=== PATIENT | male | born 1940 | race Caucasian/White ===

== ENCOUNTER 2018-04-21 01:08 | Outpatient (RCR) | payer MEDICARE, SELFPAY | END 2018-05-15 | LOC: INF 01:08 | PROVIDERS: PCP Family Medicine; Visit Provider Internal Medicine | DX: D75.0 Familial erythrocytosis (principal) | CPT/HCPCS: 36415; 85014; 85018 ==

== ENCOUNTER → 2018-04-21 06:59 | Outpatient (CLI) | payer MEDICARE, SELFPAY ==
[2018-04-21 07:17] LABS: HCT 44.7 % (40.0-50.0); HGB 14.7 g/dL (13.5-17.5)
== END ==
PROVIDERS: PCP Family Medicine; Visit Provider Family Medicine
DX: D75.0 Familial erythrocytosis (principal)
CPT/HCPCS: 36415; 85014; 85018

== ENCOUNTER → 2018-05-07 10:56 | Outpatient (CLI) | payer MEDICARE, SELFPAY ==
--- NOTE | 2018-05-07 10:56 | DI.REPORT_ITS ---
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 No evidence of deep venous thrombosis in thigh or calf. There is 23 x 10 x 19 mm in diameter complex predominantly cystic collection corresponding to an area of trauma in the patient's kennedy and the findings are consistent with hematoma. CONCLUSION: No evidence of DVT.
== END ==
PROVIDERS: PCP Family Medicine; Visit Provider Family Medicine
DX: I80.01 Phlebitis and thrombophlebitis of superficial vessels of right lower extremity (principal)
CPT/HCPCS: 93971

== ENCOUNTER 2018-05-19 01:39 | Outpatient (RCR) | payer MEDICARE, SELFPAY | END 2018-06-14 23:59 | disposition home or self-care (01) | LOC: INF 01:39 | PROVIDERS: PCP Family Medicine; Visit Provider Family Medicine | DX: D75.0 Familial erythrocytosis (principal) | CPT/HCPCS: 99195; 85014; 85018 ==

== ENCOUNTER 2018-05-19 06:59 | Outpatient (CLI) | payer MEDICARE, SELFPAY ==
[2018-05-19 07:43] LABS: HCT 47.2 % (40.0-50.0); HGB 15.3 g/dL (13.5-17.5)
== END 2018-05-19 07:19 ==
PROVIDERS: PCP Family Medicine; Visit Provider Family Medicine
DX: D75.1 Secondary polycythemia (principal); I48.91 Unspecified atrial fibrillation; Z79.01 Long term (current) use of anticoagulants
CPT/HCPCS: 84443; 85014; 85018

== ENCOUNTER 2018-06-16 07:00 | Outpatient (CLI) | payer MEDICARE, SELFPAY ==
[2018-06-16 07:16] LABS: HCT 46.9 % (40.0-50.0); HGB 15.2 g/dL (13.5-17.5)
== END 2018-06-16 07:20 ==
PROVIDERS: PCP Family Medicine; Visit Provider Family Medicine
DX: D75.0 Familial erythrocytosis (principal)
CPT/HCPCS: 36415; 85014; 85018

== ENCOUNTER 2018-07-07 00:53 | Outpatient (RCR) | payer MEDICARE, SELFPAY ==
[2018-07-07 07:11] LABS: HCT 44.5 % (40.0-50.0); HGB 14.5 g/dL (13.5-17.5)
== END 2018-07-15 23:59 | disposition home or self-care (01) ==
LOC: INF 00:53
PROVIDERS: PCP Family Medicine; Visit Provider Family Medicine
DX: D75.0 Familial erythrocytosis (principal)
CPT/HCPCS: 36415; 99195; 85014; 85018

== ENCOUNTER 2018-08-18 00:54 | Outpatient (RCR) | payer MEDICARE, SELFPAY | END 2018-09-14 23:59 | disposition home or self-care (01) | LOC: INF 00:54 | PROVIDERS: PCP Family Medicine; Visit Provider Family Medicine | DX: D75.0 Familial erythrocytosis (principal) | CPT/HCPCS: 36415; 99195; 85014; 85018 ==

== ENCOUNTER 2018-08-18 07:01 | Outpatient (CLI) | payer MEDICARE, SELFPAY ==
[2018-08-18 07:19] LABS: HCT 45.8 % (40.0-50.0); HGB 14.7 g/dL (13.5-17.5)
== END 2018-08-18 07:21 ==
PROVIDERS: PCP Family Medicine; Visit Provider Family Medicine
DX: D75.1 Secondary polycythemia (principal)
CPT/HCPCS: 36415; 85014; 85018

== ENCOUNTER 2018-09-22 01:48 | Outpatient (RCR) | payer MEDICARE, SELFPAY | END 2018-10-15 23:59 | disposition home or self-care (01) | LOC: INF 01:48 | PROVIDERS: PCP Family Medicine; Visit Provider Family Medicine | DX: D75.0 Familial erythrocytosis (principal) | CPT/HCPCS: 99195 ==

== ENCOUNTER 2018-09-22 07:02 | Outpatient (CLI) | payer MEDICARE, SELFPAY ==
[2018-09-22 07:27] LABS: HCT 46.6 % (40.0-50.0); HGB 14.8 g/dL (13.5-17.5)
[2018-09-22 08:35] LABS: TSH (W/Ref FT4) 5.92 uIU/mL (0.358-3.74)
[2018-09-22 09:00] LABS: FREE T4 1.09 ng/dL (0.76-1.46)
== END 2018-09-22 07:22 ==
PROVIDERS: PCP Family Medicine; Visit Provider Family Medicine
DX: D75.1 Secondary polycythemia (principal); E03.9 Hypothyroidism, unspecified
CPT/HCPCS: 36415; 99195; 84439; 84443; 85014; 85018

== ENCOUNTER 2018-10-20 01:49 | Outpatient (RCR) | payer MEDICARE, SELFPAY ==
[2018-10-20 07:41] LABS: HCT 43.4 % (40.0-50.0); HGB 13.9 g/dL (13.5-17.5)
== END 2018-11-12 23:59 | disposition home or self-care (01) ==
LOC: INF 01:49
PROVIDERS: PCP Family Medicine; Visit Provider Family Medicine
DX: D75.0 Familial erythrocytosis (principal)
CPT/HCPCS: 36415; 85014; 85018

== ENCOUNTER 2018-11-17 01:22 | Outpatient (RCR) | payer MEDICARE, SELFPAY | END 2018-12-13 23:59 | disposition home or self-care (01) | LOC: INF 01:22 | PROVIDERS: PCP Family Medicine; Visit Provider Family Medicine | DX: D75.0 Familial erythrocytosis (principal) | CPT/HCPCS: 99195 ==

== ENCOUNTER 2018-11-17 06:59 | Outpatient (CLI) | payer MEDICARE, SELFPAY ==
[2018-11-17 07:25] LABS: HCT 45.7 % (40.0-50.0); HGB 14.7 g/dL (13.5-17.5)
[2018-11-17 08:51] LABS: ALT 30 U/L (12-78); AST 19 U/L (15-37); Albumin 3.9 g/dL (3.4-5.0); Alkaline Phosphatase 121 U/L (46-116); Anion Gap 7.4 mmol/L (3-11); BUN 21 mg/dL (7-18); Bilirubin, Total 0.5 mg/dL (0.2-1.0); CO2 29.6 mmol/L (21.0-32.0); CREATININE 1.76 mg/dL (0.70-1.30); Calcium 9.5 mg/dL (8.5-10.1); Chloride 104 mmol/L (98-107); Cholesterol 126 mg/dL (50-200); Estimated GFR 37.84 (mL/min/1.73m2); Glucose 100 mg/dL (70-100); HDL Cholesterol 33 mg/dL (40-60); LDL CHOLESTEROL 67 mg/dL (<100); Sodium 141 mmol/L (136-145); Triglyceride 155 mg/dL (30-150)
[2018-11-17 08:58] LABS: TSH (W/Ref FT4) 4.67 uIU/mL (0.358-3.74)
[2018-11-17 09:19] LABS: FREE T4 1.03 ng/dL (0.76-1.46)
== END 2018-11-17 07:19 ==
PROVIDERS: PCP Family Medicine; Visit Provider Family Medicine
DX: E78.5 Hyperlipidemia, unspecified (principal); E03.9 Hypothyroidism, unspecified; D75.1 Secondary polycythemia
CPT/HCPCS: 36415; 80053; 80061; 83721; 99195; 84439; 84443; 85014; 85018

== ENCOUNTER 2018-12-15 02:03 | Outpatient (CLI) | payer MEDICARE, SELFPAY ==
[2018-12-15 08:04] LABS: HCT 45.6 % (40.0-50.0); HGB 14.6 g/dL (13.5-17.5)
== END 2018-12-15 02:23 ==
PROVIDERS: PCP Family Medicine; Visit Provider Family Medicine
DX: D75.1 Secondary polycythemia (principal)
CPT/HCPCS: 36415; 85014; 85018

== ENCOUNTER 2019-01-19 02:29 | Outpatient (RCR) | payer MEDICARE, SELFPAY ==
[2019-01-19 07:15] LABS: HCT 42.8 % (40.0-50.0); HGB 13.8 g/dL (13.5-17.5)
== END 2019-02-12 23:59 | disposition home or self-care (01) ==
LOC: INF 02:29
PROVIDERS: PCP Family Medicine; Visit Provider Family Medicine
DX: D75.0 Familial erythrocytosis (principal)
CPT/HCPCS: 36415; 85014; 85018

== ENCOUNTER 2019-01-19 06:55 | Outpatient (CLI) | payer MEDICARE, SELFPAY | END 2019-01-19 07:15 | PROVIDERS: PCP Family Medicine; Visit Provider Family Medicine | DX: D75.1 Secondary polycythemia (principal) ==

== ENCOUNTER 2019-02-16 01:50 | Outpatient (RCR) | payer MEDICARE, SELFPAY | END 2019-03-14 23:59 | disposition home or self-care (01) | LOC: INF 01:50 | PROVIDERS: PCP Family Medicine; Visit Provider Family Medicine | DX: D75.0 Familial erythrocytosis (principal) ==

== ENCOUNTER 2019-02-16 07:02 | Outpatient (CLI) | payer MEDICARE, SELFPAY ==
[2019-02-16 07:28] LABS: HCT 45.6 % (40.0-50.0); HGB 14.9 g/dL (13.5-17.5)
== END 2019-02-16 07:22 ==
PROVIDERS: PCP Family Medicine; Visit Provider Family Medicine
DX: D75.1 Secondary polycythemia (principal)
CPT/HCPCS: 36415; 85014; 85018

== ENCOUNTER 2019-03-16 01:48 | Outpatient (RCR) | payer MEDICARE, SELFPAY ==
[2019-03-16 07:19] LABS: HCT 47.9 % (40.0-50.0); HGB 15.5 g/dL (13.5-17.5)
== END 2019-04-14 23:59 | disposition home or self-care (01) ==
LOC: INF 01:48
PROVIDERS: PCP Family Medicine; Visit Provider Family Medicine
DX: D75.0 Familial erythrocytosis (principal)
CPT/HCPCS: 36415; 99195; 85014; 85018

== ENCOUNTER 2019-03-16 07:02 | Outpatient (CLI) | payer MEDICARE, SELFPAY | END 2019-03-16 07:22 | PROVIDERS: PCP Family Medicine; Visit Provider Family Medicine | DX: D75.1 Secondary polycythemia | CPT/HCPCS: 36415; 80048; 82043; 82570; 85014; 85018 ==

== ENCOUNTER 2019-04-20 01:21 | Outpatient (RCR) | payer MEDICARE, SELFPAY | END 2019-05-15 23:59 | disposition home or self-care (01) | LOC: INF 01:21 | PROVIDERS: PCP Family Medicine; Visit Provider Family Medicine | DX: D75.0 Familial erythrocytosis (principal) | CPT/HCPCS: 99195 ==

== ENCOUNTER 2019-04-20 07:02 | Outpatient (CLI) | payer MEDICARE, SELFPAY ==
[2019-04-20 07:40] LABS: HCT 47.6 % (40.0-50.0); HGB 15.6 g/dL (13.5-17.5)
== END 2019-04-20 07:22 ==
PROVIDERS: PCP Family Medicine; Visit Provider Family Medicine
DX: D75.1 Secondary polycythemia (principal)
CPT/HCPCS: 36415; 99195; 85014; 85018

== ENCOUNTER 2019-05-11 15:01 | Outpatient (REF) | payer MEDICARE, SELFPAY ==
[2019-05-11 18:26] LABS: Anion Gap 9.6 mmol/L (3-11); BUN 20 mg/dL (7-18); CO2 27.4 mmol/L (21.0-32.0); CREATININE 1.61 mg/dL (0.70-1.30); Calcium 8.8 mg/dL (8.5-10.1); Chloride 102 mmol/L (98-107); Estimated GFR 41.82 (mL/min/1.73m2); Glucose 110 mg/dL (70-100); Potassium 4.8 mmol/L (3.5-5.1); Sodium 139 mmol/L (136-145)
[2019-05-11 18:34] LABS: Microalb ug/mg Crea 19.8 ug/mg Cr
== END 2019-05-11 15:21 ==
LOC: LBO 15:01
PROVIDERS: PCP Family Medicine; Visit Provider Family Medicine
DX: N18.9 Chronic kidney disease, unspecified (principal)
CPT/HCPCS: 80048; 82043; 82570

== ENCOUNTER 2019-05-18 00:57 | Outpatient (RCR) | payer MEDICARE, SELFPAY ==
[2019-05-18 07:36] LABS: HCT 45.3 % (40.0-50.0); HGB 14.7 g/dL (13.5-17.5)
== END 2019-06-14 23:59 | disposition home or self-care (01) ==
LOC: INF 00:57
PROVIDERS: PCP Family Medicine; Visit Provider Family Medicine
DX: D75.1 Secondary polycythemia (principal)
CPT/HCPCS: 36415; 85014; 85018

== ENCOUNTER 2019-06-15 07:01 | Outpatient (CLI) | payer MEDICARE, SELFPAY ==
[2019-06-15 07:19] LABS: HCT 46.9 % (40.0-50.0); HGB 15.5 g/dL (13.5-17.5)
== END 2019-06-15 07:21 ==
PROVIDERS: PCP Family Medicine; Visit Provider Family Medicine
DX: D75.1 Secondary polycythemia (principal)
CPT/HCPCS: 36415; 99195; 85014; 85018

== ENCOUNTER 2019-07-13 02:06 | Outpatient (RCR) | payer MEDICARE, SELFPAY ==
[2019-06-15] MEDS: Normal Saline Flush 10 ML SYR IVP (07:46)
== END 2019-07-15 23:59 | disposition home or self-care (01) ==
LOC: INF 02:06
PROVIDERS: PCP Family Medicine; Visit Provider Family Medicine
DX: D75.0 Familial erythrocytosis (principal)
CPT/HCPCS: 99195

== ENCOUNTER 2019-07-13 07:00 | Outpatient (CLI) | payer MEDICARE, SELFPAY ==
[2019-07-13 07:21] LABS: HCT 48.2 % (40.0-50.0); HGB 15.6 g/dL (13.5-17.5)
== END 2019-07-13 07:20 ==
PROVIDERS: PCP Family Medicine; Visit Provider Family Medicine
DX: D75.1 Secondary polycythemia (principal)
CPT/HCPCS: 36415; 99195; 85014; 85018

== ENCOUNTER 2019-08-18 02:01 | Outpatient (RCR) | payer MEDICARE, SELFPAY | END 2019-09-14 23:59 | disposition home or self-care (01) | LOC: INF 02:01 | PROVIDERS: PCP Family Medicine; Visit Provider Family Medicine | DX: R69 Illness, unspecified (principal) ==

== ENCOUNTER 2019-08-18 07:47 | Outpatient (CLI) | payer MEDICARE, SELFPAY ==
[2019-08-18 07:52] LABS: HCT 45.3 % (40.0-50.0); HGB 14.4 g/dL (13.5-17.5)
== END 2019-08-18 08:07 ==
PROVIDERS: PCP Family Medicine; Visit Provider Family Medicine
DX: D75.1 Secondary polycythemia (principal)
CPT/HCPCS: 36415; 85014; 85018

== ENCOUNTER 2019-09-21 01:37 | Outpatient (RCR) | payer MEDICARE, SELFPAY | END 2019-10-15 23:59 | disposition home or self-care (01) | LOC: INF 01:37 | PROVIDERS: PCP Family Medicine; Visit Provider Family Medicine | DX: D75.0 Familial erythrocytosis (principal) ==

== ENCOUNTER 2019-09-21 06:57 | Outpatient (CLI) | payer MEDICARE, SELFPAY ==
[2019-09-21 07:28] LABS: HCT 44.9 % (40.0-50.0); HGB 14.5 g/dL (13.5-17.5)
== END 2019-09-21 07:17 ==
PROVIDERS: PCP Family Medicine; Visit Provider Family Medicine
DX: D75.1 Secondary polycythemia (principal)
CPT/HCPCS: 36415; 85014; 85018

== ENCOUNTER 2019-10-19 02:07 | Outpatient (RCR) | payer MEDICARE, SELFPAY | END 2019-11-13 23:59 | disposition home or self-care (01) | LOC: INF 02:07 | PROVIDERS: PCP Family Medicine; Visit Provider Family Medicine | DX: D75.0 Familial erythrocytosis (principal) | CPT/HCPCS: 99195 ==

== ENCOUNTER 2019-10-19 07:01 | Outpatient (CLI) | payer MEDICARE, SELFPAY ==
[2019-10-19 07:20] LABS: HCT 48.1 % (40.0-50.0); HGB 15.4 g/dL (13.5-17.5)
== END 2019-10-19 07:21 ==
PROVIDERS: PCP Family Medicine; Visit Provider Family Medicine
DX: D75.1 Secondary polycythemia (principal)
CPT/HCPCS: 36415; 99195; 85014; 85018

== ENCOUNTER 2019-11-16 03:16 | Outpatient (RCR) | payer MEDICARE, SELFPAY | END 2019-12-14 23:59 | disposition home or self-care (01) | LOC: INF 03:16 | PROVIDERS: PCP Family Medicine; Visit Provider Family Medicine | DX: R69 Illness, unspecified (principal) ==

== ENCOUNTER 2019-11-16 07:06 | Outpatient (CLI) | payer MEDICARE, SELFPAY ==
[2019-11-16 07:25] LABS: HCT 43.7 % (40.0-50.0); HGB 14.1 g/dL (13.5-17.5)
== END 2019-11-16 07:26 ==
PROVIDERS: PCP Family Medicine; Visit Provider Family Medicine
DX: D75.1 Secondary polycythemia (principal)
CPT/HCPCS: 36415; 85014; 85018

== ENCOUNTER 2019-12-16 08:47 | Outpatient (REF) | payer MEDICARE, SELFPAY ==
[2019-12-16 10:25] LABS: HGB 14.3 g/dL (13.5-17.5)
== END 2019-12-16 09:07 ==
LOC: LBN 08:47
PROVIDERS: PCP Family Medicine; Visit Provider Family Medicine
DX: D75.1 Secondary polycythemia (principal)
CPT/HCPCS: 85014; 85018

== ENCOUNTER 2020-01-13 08:31 | Outpatient (REF) | payer MEDICARE, SELFPAY ==
[2020-01-13 12:27] LABS: HCT 44.1 % (40.0-50.0); HGB 14.3 g/dL (13.5-17.5)
== END 2020-01-13 08:51 ==
LOC: LBN 08:31
PROVIDERS: PCP Family Medicine; Visit Provider Family Medicine
DX: J30.9 Allergic rhinitis, unspecified (principal)
CPT/HCPCS: 85014; 85018

== ENCOUNTER 2020-01-14 14:44 | Outpatient (RCR) | payer MEDICARE, SELFPAY | END 2020-01-14 23:00 | disposition home or self-care (01) | LOC: INF 14:44 | PROVIDERS: PCP Family Medicine; Visit Provider Family Medicine | DX: R69 Illness, unspecified (principal) ==

== ENCOUNTER 2020-02-10 08:23 | Outpatient (REF) | payer MEDICARE, SELFPAY ==
[2020-02-10 18:33] LABS: HCT 46.3 % (40.0-50.0); HGB 15.1 g/dL (13.5-17.5)
== END 2020-02-10 08:43 ==
LOC: LBN 08:23
PROVIDERS: PCP Family Medicine; Visit Provider Family Medicine
DX: D75.1 Secondary polycythemia (principal)
CPT/HCPCS: 85014; 85018

== ENCOUNTER 2020-02-11 18:18 | Outpatient (RCR) | payer MEDICARE, SELFPAY | END 2020-02-11 23:00 | disposition home or self-care (01) | LOC: INF 18:18 | PROVIDERS: PCP Family Medicine; Visit Provider Family Medicine | DX: D75.1 Secondary polycythemia (principal) | CPT/HCPCS: 99195 ==

== ENCOUNTER 2020-03-14 02:10 | Outpatient (RCR) | payer MEDICARE, SELFPAY | END 2020-03-14 23:59 | disposition home or self-care (01) | LOC: INF 02:10 | PROVIDERS: PCP Family Medicine; Visit Provider Family Medicine | DX: D75.1 Secondary polycythemia (principal) | CPT/HCPCS: 99195 ==

== ENCOUNTER 2020-03-14 02:44 | Outpatient (CLI) | payer MEDICARE, SELFPAY ==
[2020-03-14 07:09] LABS: HGB 15.3 g/dL (13.5-17.5)
== END 2020-03-14 03:04 ==
PROVIDERS: PCP Family Medicine; Visit Provider Family Medicine
DX: D75.1 Secondary polycythemia (principal)
CPT/HCPCS: 36415; 99195; 85014; 85018

== ENCOUNTER 2020-04-11 01:58 | Outpatient (RCR) | payer MEDICARE, SELFPAY | END 2020-04-14 23:59 | disposition home or self-care (01) | LOC: INF 01:58 | PROVIDERS: PCP Family Medicine; Visit Provider Family Medicine | DX: D75.0 Familial erythrocytosis (principal) | CPT/HCPCS: 99195 ==

== ENCOUNTER 2020-04-11 02:34 | Outpatient (CLI) | payer MEDICARE, SELFPAY ==
[2020-04-11 07:15] LABS: HCT 46.8 % (40.0-50.0)
== END 2020-04-11 02:54 ==
PROVIDERS: PCP Family Medicine; Visit Provider Family Medicine
DX: D75.1 Secondary polycythemia (principal)
CPT/HCPCS: 36415; 99195; 85014; 85018

== ENCOUNTER 2020-05-09 01:25 | Outpatient (RCR) | payer MEDICARE, SELFPAY ==
[2020-05-09 07:22] VITALS: BP 174/102; PULSE 84
[2020-05-09 07:40] VITALS: BP 135/72; PULSE 86
== END 2020-05-15 23:59 | disposition home or self-care (01) ==
LOC: INF 01:25
PROVIDERS: PCP Family Medicine; Visit Provider Family Medicine
DX: D75.1 Secondary polycythemia (principal)
CPT/HCPCS: 99195

== ENCOUNTER 2020-05-09 03:17 | Outpatient (CLI) | payer MEDICARE, SELFPAY ==
[2020-05-09 07:13] LABS: HCT 45.7 % (40.0-50.0); HGB 13.9 g/dL (13.5-17.5)
[2020-05-09 11:32] LABS: Anion Gap 1.1 mmol/L (3-11); BUN 23 mg/dL (7-18); CO2 30.9 mmol/L (21.0-32.0); CREATININE 1.56 mg/dL (0.70-1.30); Calcium 9.2 mg/dL (8.5-10.1); Chloride 104 mmol/L (98-107); Estimated GFR 43.26 (mL/min/1.73m2); Glucose 102 mg/dL (74-106); Potassium 4.7 mmol/L (3.5-5.1); Sodium 136 mmol/L (136-145)
== END 2020-05-09 03:37 ==
PROVIDERS: PCP Family Medicine; Visit Provider Family Medicine
DX: N18.9 Chronic kidney disease, unspecified (principal); D75.1 Secondary polycythemia
CPT/HCPCS: 36415; 80048; 99195; 85014; 85018

== ENCOUNTER 2020-06-13 02:00 | Outpatient (RCR) | payer MEDICARE, SELFPAY | END 2020-06-14 23:59 | disposition home or self-care (01) | LOC: INF 02:00 | PROVIDERS: PCP Family Medicine; Visit Provider Family Medicine | DX: Z53.9 Procedure and treatment not carried out, unspecified reason (principal) ==

== ENCOUNTER 2020-06-13 03:27 | Outpatient (CLI) | payer MEDICARE, SELFPAY ==
[2020-06-13 07:26] LABS: HCT 44.5 % (40.0-50.0); HGB 13.7 g/dL (13.5-17.5)
== END 2020-06-13 03:47 ==
PROVIDERS: PCP Family Medicine; Visit Provider Family Medicine
DX: D75.1 Secondary polycythemia (principal)
CPT/HCPCS: 36415; 85014; 85018

== ENCOUNTER 2020-07-04 00:57 | Outpatient (RCR) | payer MEDICARE, SELFPAY | END 2020-07-15 23:59 | disposition home or self-care (01) | LOC: INF 00:57 | PROVIDERS: PCP Family Medicine; Visit Provider Family Medicine | DX: Z53.9 Procedure and treatment not carried out, unspecified reason (principal) ==

== ENCOUNTER 2020-07-04 01:35 | Outpatient (CLI) | payer MEDICARE, SELFPAY ==
[2020-07-04 07:42] LABS: HCT 46.5 % (40.0-50.0); HGB 14.2 g/dL (13.5-17.5)
== END 2020-07-04 01:55 ==
PROVIDERS: PCP Family Medicine; Visit Provider Family Medicine
DX: D75.1 Secondary polycythemia (principal)
CPT/HCPCS: 36415; 85014; 85018

== ENCOUNTER 2020-08-23 02:59 | Outpatient (RCR) | payer MEDICARE, SELFPAY ==
[2020-08-23 08:25] VITALS: BP 163/95; PULSE 85; RESP 18; TEMP 36.5; O2SAT 97
== END 2020-09-14 23:59 | disposition home or self-care (01) ==
LOC: INF 02:59
PROVIDERS: PCP Family Medicine; Visit Provider Family Medicine
DX: D75.1 Secondary polycythemia (principal)
CPT/HCPCS: 36415; 99195; 85014; 85018

== ENCOUNTER 2020-08-23 03:10 | Outpatient (CLI) | payer MEDICARE, SELFPAY | END 2020-08-23 03:30 | PROVIDERS: PCP Family Medicine; Visit Provider Family Medicine | DX: D75.1 Secondary polycythemia (principal) | CPT/HCPCS: 36415; 85014; 85018 ==

== ENCOUNTER 2020-09-19 02:34 | Outpatient (RCR) | payer MEDICARE, SELFPAY ==
[2020-09-15 00:13] VITALS: BP 163/95; PULSE 85; RESP 18; TEMP 36.5
[2020-09-19 07:16] LABS: HCT 47.8 % (40.0-50.0); HGB 14.5 g/dL (13.5-17.5)
== END 2020-10-15 23:59 | disposition home or self-care (01) ==
LOC: INF 02:34
PROVIDERS: PCP Family Medicine; Visit Provider Family Medicine
DX: D75.1 Secondary polycythemia (principal)
CPT/HCPCS: 36415; 99195; 85014; 85018

== ENCOUNTER 2020-10-17 01:45 | Outpatient (RCR) | payer MEDICARE, SELFPAY ==
[2020-10-16 00:05] VITALS: BP 163/95; PULSE 85; RESP 18; TEMP 36.5
== END 2020-11-12 23:59 | disposition home or self-care (01) ==
LOC: INF 01:45
PROVIDERS: PCP Family Medicine; Visit Provider Family Medicine
DX: D75.1 Secondary polycythemia (principal)
CPT/HCPCS: 99195

== ENCOUNTER 2020-10-17 02:54 | Outpatient (CLI) | payer MEDICARE, SELFPAY ==
[2020-10-17 07:22] LABS: HCT 46.3 % (40.0-50.0); HGB 14.5 g/dL (13.5-17.5)
== END 2020-10-17 02:55 | disposition home or self-care (01) ==
LOC: LBO 02:54
PROVIDERS: PCP Family Medicine; Visit Provider Family Medicine
DX: D75.1 Secondary polycythemia (principal)
CPT/HCPCS: 36415; 99195; 85014; 85018

== ENCOUNTER 2020-11-14 02:31 | Outpatient (RCR) | payer MEDICARE, SELFPAY ==
[2020-11-13 00:04] VITALS: BP 163/95; PULSE 85; RESP 18; TEMP 36.5
== END 2020-12-13 23:59 | disposition home or self-care (01) ==
LOC: INF 02:31
PROVIDERS: PCP Family Medicine; Visit Provider Family Medicine
DX: D75.1 Secondary polycythemia (principal)
CPT/HCPCS: 99195

== ENCOUNTER 2020-11-14 03:11 | Outpatient (CLI) | payer MEDICARE, SELFPAY ==
[2020-11-14 07:18] LABS: HCT 46.7 % (40.0-50.0); HGB 14.3 g/dL (13.5-17.5)
[2020-11-14 07:27] LABS: Anion Gap 7.1 mmol/L (3-11); BUN 21 mg/dL (7-18); CO2 28.9 mmol/L (21.0-32.0); CREATININE 1.8 mg/dL (0.70-1.30); Chloride 102 mmol/L (98-107); Estimated GFR 36.67 (mL/min/1.73m2); Glucose 107 mg/dL (74-106); Potassium 4.6 mmol/L (3.5-5.1); Sodium 138 mmol/L (136-145)
== END 2020-11-14 03:12 | disposition home or self-care (01) ==
LOC: LBO 03:12
PROVIDERS: PCP Family Medicine; Visit Provider Family Medicine
DX: D75.1 Secondary polycythemia (principal); N18.9 Chronic kidney disease, unspecified
CPT/HCPCS: 36415; 80048; 99195; 85014; 85018

== ENCOUNTER 2020-12-19 03:31 | Outpatient (CLI) | payer MEDICARE, SELFPAY ==
[2020-12-19 07:41] LABS: HCT 43.5 % (40.0-50.0); HGB 13.1 g/dL (13.5-17.5)
== END 2020-12-19 03:32 | disposition home or self-care (01) ==
LOC: LBO 03:31
PROVIDERS: PCP Family Medicine; Visit Provider Family Medicine
DX: D75.1 Secondary polycythemia (principal)
CPT/HCPCS: 36415; 85014; 85018

== ENCOUNTER 2021-01-16 01:47 | Outpatient (RCR) | payer MEDICARE, SELFPAY ==
[2021-01-13 00:22] VITALS: BP 163/95; PULSE 85; RESP 18; TEMP 36.5
== END 2021-02-12 23:59 | disposition home or self-care (01) ==
LOC: INF 01:47
PROVIDERS: PCP Family Medicine; Visit Provider Family Medicine
DX: D75.1 Secondary polycythemia (principal)
CPT/HCPCS: 99195

== ENCOUNTER 2021-01-16 07:06 | Outpatient (CLI) | payer MEDICARE, SELFPAY ==
[2021-01-16 07:24] LABS: HCT 48.6 % (40.0-50.0); HGB 14.7 g/dL (13.5-17.5)
== END 2021-01-16 07:07 | disposition home or self-care (01) ==
LOC: LBO 07:10
PROVIDERS: PCP Family Medicine; Visit Provider Family Medicine
DX: D75.1 Secondary polycythemia (principal)
CPT/HCPCS: 36415; 99195; 85014; 85018

== ENCOUNTER 2021-02-13 02:57 | Outpatient (CLI) | payer MEDICARE, SELFPAY ==
[2021-02-13 07:21] LABS: HCT 46.7 % (40.0-50.0); HGB 14.1 g/dL (13.5-17.5)
[2021-02-13 08:17] LABS: TSH (W/Ref FT4) 6.72 uIU/mL (0.36-3.74)
[2021-02-13 08:36] LABS: FREE T4 0.89 ng/dL (0.76-1.46)
== END 2021-02-13 02:58 | disposition home or self-care (01) ==
LOC: LBO 02:57
PROVIDERS: PCP Family Medicine; Visit Provider Family Medicine
DX: E03.9 Hypothyroidism, unspecified (principal); I10 Essential (primary) hypertension; D75.1 Secondary polycythemia
CPT/HCPCS: 36415; 99195; 84439; 84443; 85014; 85018

== ENCOUNTER 2021-03-06 02:45 | Outpatient (RCR) | payer MEDICARE, SELFPAY ==
[2021-02-13 00:08] VITALS: BP 163/95; PULSE 85; RESP 18; TEMP 36.5
== END 2021-03-14 23:59 | disposition home or self-care (01) ==
LOC: INF 02:45
PROVIDERS: PCP Family Medicine; Visit Provider Family Medicine
DX: D75.1 Secondary polycythemia (principal)
CPT/HCPCS: 99195

== ENCOUNTER 2021-03-06 03:14 | Outpatient (CLI) | payer MEDICARE, SELFPAY ==
[2021-03-06 07:20] LABS: HCT 42.7 % (40.0-50.0); HGB 12.9 g/dL (13.5-17.5)
== END 2021-03-06 03:15 | disposition home or self-care (01) ==
LOC: LBO 03:14
PROVIDERS: PCP Family Medicine; Visit Provider Family Medicine
DX: D75.1 Secondary polycythemia (principal)
CPT/HCPCS: 36415; 85014; 85018

== ENCOUNTER 2021-04-03 02:09 | Outpatient (RCR) | payer MEDICARE, SELFPAY ==
[2021-03-15 00:19] VITALS: BP 163/95; PULSE 85; RESP 18; TEMP 36.5
[2021-04-03] MEDS: Normal Saline Flush 10 ML SYR IVP (08:01)
== END 2021-04-14 23:59 | disposition home or self-care (01) ==
LOC: INF 02:09
PROVIDERS: PCP Family Medicine; Visit Provider Family Medicine
DX: D75.1 Secondary polycythemia (principal)
CPT/HCPCS: 99195

== ENCOUNTER 2021-04-03 02:50 | Outpatient (CLI) | payer MEDICARE, SELFPAY ==
[2021-04-03 07:27] LABS: HCT 45.8 % (40.0-50.0); HGB 13.6 g/dL (13.5-17.5)
== END 2021-04-03 02:51 | disposition home or self-care (01) ==
LOC: LBO 02:50
PROVIDERS: PCP Family Medicine; Visit Provider Family Medicine
DX: D75.1 Secondary polycythemia (principal)
CPT/HCPCS: 36415; 99195; 85014; 85018

== ENCOUNTER 2021-05-01 03:26 | Outpatient (CLI) | payer MEDICARE, SELFPAY ==
[2021-05-01 07:27] LABS: HCT 42.4 % (40.0-50.0); HGB 12.5 g/dL (13.5-17.5)
== END 2021-05-01 03:27 | disposition home or self-care (01) ==
LOC: LBO 03:26
PROVIDERS: PCP Family Medicine; Visit Provider Family Medicine
DX: D75.1 Secondary polycythemia (principal)
CPT/HCPCS: 36415; 85014; 85018

== ENCOUNTER 2021-06-05 01:48 | Outpatient (CLI) | payer MEDICARE, SELFPAY ==
[2021-06-05 07:16] LABS: HCT 43.8 % (40.0-50.0)
== END 2021-06-05 01:49 | disposition home or self-care (01) ==
LOC: LBO 01:48
PROVIDERS: PCP Family Medicine; Visit Provider Family Medicine
DX: D75.1 Secondary polycythemia (principal)
CPT/HCPCS: 36415; 85014; 85018

== ENCOUNTER 2021-06-26 03:45 | Outpatient (CLI) | payer MEDICARE, SELFPAY ==
[2021-06-26 07:26] LABS: HCT 44.1 % (40.0-50.0); HGB 13.1 g/dL (13.5-17.5)
== END 2021-06-26 03:46 | disposition home or self-care (01) ==
LOC: LBO 03:45
PROVIDERS: PCP Family Medicine; Visit Provider Family Medicine
DX: D75.1 Secondary polycythemia (principal)
CPT/HCPCS: 36415; 85014; 85018

== ENCOUNTER 2021-07-17 02:23 | Outpatient (CLI) | payer MEDICARE, SELFPAY ==
[2021-07-17 07:20] LABS: HGB 13.1 g/dL (13.5-17.5)
[2021-07-17 08:31] LABS: Anion Gap 5.9 mmol/L (3-11); BUN 22 mg/dL (7-18); CO2 30.1 mmol/L (21.0-32.0); CREATININE 1.8 mg/dL (0.70-1.30); Calcium 9.1 mg/dL (8.5-10.1); Chloride 104 mmol/L (98-107); Estimated GFR 36.58 (mL/min/1.73m2); Glucose 99 mg/dL (74-106); Potassium 4.9 mmol/L (3.5-5.1); Sodium 140 mmol/L (136-145); TSH (W/Ref FT4) 2.55 uIU/mL (0.36-3.74)
== END 2021-07-17 02:24 | disposition home or self-care (01) ==
LOC: LBO 02:24
PROVIDERS: PCP Family Medicine; Visit Provider Family Medicine
DX: D75.1 Secondary polycythemia (principal)
CPT/HCPCS: 36415; 80048; 84443; 85014; 85018

== ENCOUNTER 2021-08-14 02:32 | Outpatient (CLI) | payer MEDICARE, SELFPAY ==
[2021-08-14 07:13] LABS: HGB 13.5 g/dL (13.5-17.5)
== END 2021-08-14 02:33 | disposition home or self-care (01) ==
LOC: LBO 02:32
PROVIDERS: PCP Family Medicine; Visit Provider Family Medicine
DX: D75.1 Secondary polycythemia (principal)
CPT/HCPCS: 36415; 85014; 85018

== ENCOUNTER 2021-09-04 01:20 | Outpatient (RCR) | payer MEDICARE, SELFPAY ==
[2021-08-15 00:19] VITALS: BP 163/95; PULSE 85; RESP 18; TEMP 36.5
== END 2021-09-14 23:59 | disposition home or self-care (01) ==
LOC: INF 01:20
PROVIDERS: PCP Family Medicine; Visit Provider Family Medicine
DX: D75.1 Secondary polycythemia (principal)
CPT/HCPCS: 99195

== ENCOUNTER 2021-09-04 02:26 | Outpatient (CLI) | payer MEDICARE, SELFPAY ==
[2021-09-04 07:22] LABS: HCT 47.8 % (40.0-50.0); HGB 14.1 g/dL (13.5-17.5)
== END 2021-09-04 02:27 | disposition home or self-care (01) ==
LOC: LBO 02:26
PROVIDERS: PCP Family Medicine; Visit Provider Family Medicine
DX: D75.1 Secondary polycythemia (principal)
CPT/HCPCS: 36415; 99195; 85014; 85018

== ENCOUNTER 2021-10-02 01:24 | Outpatient (RCR) | payer MEDICARE, SELFPAY ==
[2021-09-15 00:17] VITALS: BP 163/95; PULSE 85; RESP 18; TEMP 36.5
[2021-10-02 07:35] VITALS: BP 119/81; PULSE 66; RESP 18; O2SAT 98
== END 2021-10-15 23:59 | disposition home or self-care (01) ==
LOC: INF 01:24
PROVIDERS: PCP Family Medicine; Visit Provider Family Medicine
DX: D75.1 Secondary polycythemia (principal)
CPT/HCPCS: 99195

== ENCOUNTER 2021-10-02 02:25 | Outpatient (CLI) | payer MEDICARE, SELFPAY ==
[2021-10-02 07:16] LABS: HCT 50.1 % (40.0-50.0); HGB 14.8 g/dL (13.5-17.5)
[2021-10-02 07:33] LABS: Uric Acid 7.2 mg/dL (3.5-7.2)
== END 2021-10-02 02:26 | disposition home or self-care (01) ==
LOC: LBO 02:25
PROVIDERS: PCP Family Medicine; Visit Provider Family Medicine
DX: M10.9 Gout, unspecified (principal); D75.1 Secondary polycythemia
CPT/HCPCS: 36415; 99195; 84550; 85014; 85018

== ENCOUNTER 2021-10-30 02:09 | Outpatient (CLI) | payer MEDICARE, SELFPAY ==
[2021-10-30 07:38] LABS: HCT 43.9 % (40.0-50.0); HGB 12.9 g/dL (13.5-17.5)
== END 2021-10-30 02:10 | disposition home or self-care (01) ==
LOC: LBO 02:09
PROVIDERS: PCP Family Medicine; Visit Provider Family Medicine
DX: D75.1 Secondary polycythemia (principal)
CPT/HCPCS: 36415; 85014; 85018

== ENCOUNTER 2021-11-27 01:36 | Outpatient (CLI) | payer MEDICARE, SELFPAY ==
[2021-11-27 07:19] LABS: HCT 45.1 % (40.0-50.0); HGB 13.1 g/dL (13.5-17.5)
== END 2021-11-27 01:37 | disposition home or self-care (01) ==
LOC: LBO 01:36
PROVIDERS: PCP Family Medicine; Visit Provider Family Medicine
DX: D75.1 Secondary polycythemia (principal)
CPT/HCPCS: 36415; 85014; 85018

== ENCOUNTER 2021-12-18 04:32 | Outpatient (CLI) | payer MEDICARE, SELFPAY ==
[2021-12-18 07:15] LABS: HCT 45.8 % (40.0-50.0); HGB 13.4 g/dL (13.5-17.5)
== END 2021-12-18 04:33 | disposition home or self-care (01) ==
LOC: LBO 04:32
PROVIDERS: PCP Family Medicine; Visit Provider Family Medicine
DX: D75.1 Secondary polycythemia (principal)
CPT/HCPCS: 36415; 80048; 85014; 85018

== ENCOUNTER 2022-01-15 02:17 | Outpatient (CLI) | payer MEDICARE, SELFPAY ==
[2022-01-15 07:13] LABS: HCT 45.4 % (40.0-50.0); HGB 13.3 g/dL (13.5-17.5)
== END 2022-01-15 02:18 | disposition home or self-care (01) ==
LOC: LBO 02:17
PROVIDERS: PCP Family Medicine; Visit Provider Family Medicine
DX: D75.1 Secondary polycythemia (principal)
CPT/HCPCS: 36415; 85014; 85018

== ENCOUNTER 2022-02-12 02:07 | Outpatient (RCR) | payer MEDICARE, SELFPAY ==
[2022-01-13 00:06] VITALS: BP 119/81; PULSE 66; RESP 18; TEMP 36.5
== END 2022-02-12 23:59 | disposition home or self-care (01) ==
LOC: INF 02:07
PROVIDERS: PCP Family Medicine; Visit Provider Family Medicine
DX: D75.1 Secondary polycythemia (principal)
CPT/HCPCS: 99195

== ENCOUNTER 2022-02-12 03:02 | Outpatient (CLI) | payer MEDICARE, SELFPAY ==
[2022-02-12 07:30] LABS: HCT 48.4 % (40.0-50.0); HGB 14.3 g/dL (13.5-17.5)
[2022-02-12 09:49] LABS: Anion Gap 8.6 mmol/L (3-11); BUN 20 mg/dL (7-18); CO2 28.4 mmol/L (21.0-32.0); CREATININE 1.6 mg/dL (0.70-1.30); Calcium 9.2 mg/dL (8.5-10.1); Chloride 100 mmol/L (98-107); Glucose 71 mg/dL (74-106); Potassium 4.8 mmol/L (3.5-5.1); Sodium 137 mmol/L (136-145)
== END 2022-02-12 03:03 | disposition home or self-care (01) ==
PROVIDERS: PCP Family Medicine; Visit Provider Family Medicine
DX: N18.9 Chronic kidney disease, unspecified (principal); D75.1 Secondary polycythemia
CPT/HCPCS: 36415; 80048; 99195; 85014; 85018

== ENCOUNTER 2022-03-12 02:42 | Outpatient (CLI) | payer MEDICARE, SELFPAY ==
[2022-03-12 07:15] LABS: HCT 45.1 % (40.0-50.0); HGB 13.4 g/dL (13.5-17.5)
== END 2022-03-12 02:43 | disposition home or self-care (01) ==
LOC: LBO 02:42
PROVIDERS: PCP Family Medicine; Visit Provider Family Medicine
DX: D75.1 Secondary polycythemia (principal)
CPT/HCPCS: 36415; 85014; 85018

== ENCOUNTER 2022-04-09 03:15 | Outpatient (RCR) | payer MEDICARE, SELFPAY ==
[2022-03-15 00:07] VITALS: BP 119/81; PULSE 66; RESP 18; TEMP 36.5
== END 2022-04-14 23:59 | disposition home or self-care (01) ==
LOC: INF 03:15
PROVIDERS: PCP Family Medicine; Visit Provider Family Medicine
DX: D75.1 Secondary polycythemia (principal)
CPT/HCPCS: 99195

== ENCOUNTER 2022-04-09 03:31 | Outpatient (CLI) | payer MEDICARE, SELFPAY ==
[2022-04-09 07:18] LABS: HCT 45.9 % (40.0-50.0); HGB 13.8 g/dL (13.5-17.5)
== END 2022-04-09 03:32 | disposition home or self-care (01) ==
LOC: LBO 03:31
PROVIDERS: PCP Family Medicine; Visit Provider Family Medicine
DX: D75.1 Secondary polycythemia (principal)
CPT/HCPCS: 36415; 99195; 85014; 85018

== ENCOUNTER 2022-05-07 03:02 | Outpatient (CLI) | payer MEDICARE, SELFPAY ==
[2022-05-07 07:08] LABS: HCT 44.7 % (40.0-50.0); HGB 13.4 g/dL (13.5-17.5)
== END 2022-05-07 03:03 | disposition home or self-care (01) ==
LOC: LBO 03:02
PROVIDERS: PCP Family Medicine; Visit Provider Family Medicine
DX: D75.1 Secondary polycythemia (principal)
CPT/HCPCS: 36415; 85014; 85018

== ENCOUNTER 2022-06-04 01:19 | Outpatient (RCR) | payer MEDICARE, SELFPAY ==
[2022-05-16 00:14] VITALS: BP 119/81; PULSE 66; RESP 18; TEMP 36.5
== END 2022-06-14 23:59 | disposition home or self-care (01) ==
LOC: INF 01:19
PROVIDERS: PCP Family Medicine; Visit Provider Family Medicine
DX: D75.1 Secondary polycythemia (principal)
CPT/HCPCS: 36415; 99195; 85014; 85018

== ENCOUNTER 2022-06-04 01:32 | Outpatient (CLI) | payer MEDICARE, SELFPAY ==
[2022-06-04 07:09] LABS: HCT 46.2 % (40.0-50.0); HGB 13.9 g/dL (13.5-17.5)
== END 2022-06-04 01:33 | disposition home or self-care (01) ==
LOC: LBO 01:32
PROVIDERS: PCP Family Medicine; Visit Provider Family Medicine
DX: D75.1 Secondary polycythemia (principal)
CPT/HCPCS: 36415; 85014; 85018

== ENCOUNTER 2022-07-02 03:25 | Outpatient (RCR) | payer MEDICARE, SELFPAY ==
[2022-06-15 00:21] VITALS: BP 119/81; PULSE 66; RESP 18; TEMP 36.5
== END 2022-07-15 23:59 | disposition home or self-care (01) ==
LOC: INF 03:25
PROVIDERS: PCP Family Medicine; Visit Provider Family Medicine
DX: D75.1 Secondary polycythemia (principal)
CPT/HCPCS: 99195

== ENCOUNTER 2022-07-02 03:34 | Outpatient (CLI) | payer MEDICARE, SELFPAY ==
[2022-07-02 07:17] LABS: HCT 45.7 % (40.0-50.0); HGB 13.6 g/dL (13.5-17.5)
== END 2022-07-02 03:35 | disposition home or self-care (01) ==
LOC: LBO 03:34
PROVIDERS: PCP Family Medicine; Visit Provider Family Medicine
DX: D75.1 Secondary polycythemia (principal)
CPT/HCPCS: 36415; 99195; 85014; 85018

== ENCOUNTER → 2022-07-19 14:47 | Outpatient (CLI) | payer MEDICARE, SELFPAY ==
--- NOTE | 2022-07-19 14:17 | DI.RAD_ITS ---
Exam(s) XR CHEST 2V PA LATERAL EXAM: XR CHEST 2V PA LATERAL CLINICAL HISTORY: ACUTE BRONCHITIS-J20.9. TECHNIQUE: 2D digital imaging was performed. COMPARISON: CR CHEST 2 VIEWS PA,LAT from 02/01/2014 CR CHEST 2 VIEWS PA,LAT from 12/04/2016 FINDINGS: 2 views: Heart size is normal. The mediastinum is not widened. Are bilateral symmetrical nodular densities in both lower lung thirds which are probably the breast n ipples. No other pulmonary findings and no pleural effusions. IMPRESSION: No acute pulmonary findings.Bilateral breast nipple shadows noted. DATA REPOSITORY: RADIATION DOSE DELIVERED:
== END ==
PROVIDERS: PCP Family Medicine; Visit Provider Family Medicine
DX: J20.9 Acute bronchitis, unspecified (principal)
CPT/HCPCS: 71046

== ENCOUNTER 2022-08-13 03:45 | Outpatient (CLI) | payer MEDICARE, SELFPAY ==
[2022-08-13 07:09] LABS: HCT 46.5 % (40.0-50.0); HGB 13.9 g/dL (13.5-17.5)
== END 2022-08-13 03:46 | disposition home or self-care (01) ==
LOC: LBO 03:45
PROVIDERS: PCP Family Medicine; Visit Provider Family Medicine
DX: D75.1 Secondary polycythemia (principal)
CPT/HCPCS: 36415; 99195; 85014; 85018

== ENCOUNTER 2022-09-10 03:43 | Outpatient (CLI) | payer MEDICARE, SELFPAY ==
[2022-09-10 07:15] LABS: HCT 44.2 % (40.0-50.0); HGB 13.3 g/dL (13.5-17.5)
== END 2022-09-10 03:44 | disposition home or self-care (01) ==
LOC: LBO 03:43
PROVIDERS: PCP Family Medicine; Visit Provider Family Medicine
DX: D75.1 Secondary polycythemia (principal)
CPT/HCPCS: 36415; 85014; 85018

== ENCOUNTER 2022-10-08 03:09 | Outpatient (RCR) | payer MEDICARE, SELFPAY ==
[2022-09-15 00:18] VITALS: BP 119/81; PULSE 66; RESP 18; TEMP 36.5
== END 2022-10-15 23:59 | disposition home or self-care (01) ==
LOC: INF 03:09
PROVIDERS: PCP Family Medicine; Visit Provider Family Medicine
DX: D75.1 Secondary polycythemia (principal)
CPT/HCPCS: 99195

== ENCOUNTER 2022-10-08 03:20 | Outpatient (CLI) | payer MEDICARE, SELFPAY ==
[2022-10-08 07:10] LABS: HCT 46.7 % (40.0-50.0); HGB 13.9 g/dL (13.5-17.5)
== END 2022-10-08 03:21 | disposition home or self-care (01) ==
LOC: LBO 03:20
PROVIDERS: PCP Family Medicine; Visit Provider Family Medicine
DX: D75.1 Secondary polycythemia (principal)
CPT/HCPCS: 36415; 99195; 85014; 85018

== ENCOUNTER 2022-11-05 01:52 | Outpatient (RCR) | payer MEDICARE, SELFPAY ==
[2022-10-16 00:16] VITALS: BP 119/81; PULSE 66; RESP 18; TEMP 36.5
== END 2022-11-12 23:59 | disposition home or self-care (01) ==
LOC: INF 01:52
PROVIDERS: PCP Family Medicine; Visit Provider Family Medicine
DX: D75.1 Secondary polycythemia (principal)
CPT/HCPCS: 99195

== ENCOUNTER 2022-11-05 01:57 | Outpatient (CLI) | payer MEDICARE, SELFPAY ==
[2022-11-05 07:12] LABS: HCT 47.2 % (40.0-50.0); HGB 13.8 g/dL (13.5-17.5)
== END 2022-11-05 01:58 | disposition home or self-care (01) ==
LOC: LBO 01:57
PROVIDERS: PCP Family Medicine; Visit Provider Family Medicine
DX: D75.1 Secondary polycythemia (principal)
CPT/HCPCS: 36415; 99195; 85014; 85018

== ENCOUNTER 2022-12-03 02:27 | Outpatient (CLI) | payer MEDICARE, SELFPAY ==
[2022-12-03 07:10] LABS: HCT 44.7 % (40.0-50.0); HGB 13.1 g/dL (13.5-17.5)
== END 2022-12-03 02:28 | disposition home or self-care (01) ==
LOC: LBO 02:27
PROVIDERS: PCP Family Medicine; Visit Provider Family Medicine
DX: D75.1 Secondary polycythemia (principal)
CPT/HCPCS: 36415; 85014; 85018

== ENCOUNTER 2022-12-31 02:43 | Outpatient (CLI) | payer MEDICARE, SELFPAY ==
[2022-12-31 07:22] LABS: HCT 42.3 % (40.0-50.0); HGB 12.6 g/dL (13.5-17.5)
== END 2022-12-31 02:44 | disposition home or self-care (01) ==
LOC: LBO 02:43
PROVIDERS: PCP Family Medicine; Visit Provider Family Medicine
DX: D75.1 Secondary polycythemia (principal)
CPT/HCPCS: 36415; 85014; 85018

== ENCOUNTER 2023-01-28 02:44 | Outpatient (CLI) | payer MEDICARE, SELFPAY ==
[2023-01-28 07:13] LABS: HCT 44.2 % (40.0-50.0); HGB 13.2 g/dL (13.5-17.5)
== END 2023-01-28 02:45 | disposition home or self-care (01) ==
LOC: LBO 02:44
PROVIDERS: PCP Family Medicine; Visit Provider Family Medicine
DX: D75.1 Secondary polycythemia (principal)
CPT/HCPCS: 36415; 85014; 85018

== ENCOUNTER 2023-02-18 03:14 | Outpatient (CLI) | payer MEDICARE, SELFPAY ==
[2023-02-18 07:10] LABS: HCT 45.3 % (40.0-50.0); HGB 13.3 g/dL (13.5-17.5)
== END 2023-02-18 03:15 | disposition home or self-care (01) ==
LOC: LBO 03:14
PROVIDERS: PCP Family Medicine; Visit Provider Family Medicine
DX: D75.1 Secondary polycythemia (principal)
CPT/HCPCS: 36415; 85014; 85018

== ENCOUNTER 2023-03-19 02:21 | Outpatient (RCR) | payer MEDICARE, SELFPAY ==
[2023-03-15 00:16] VITALS: BP 119/81; PULSE 66; RESP 18; TEMP 36.5
== END 2023-04-14 23:59 | disposition home or self-care (01) ==
LOC: INF 02:21
PROVIDERS: PCP Family Medicine; Visit Provider Family Medicine
DX: D75.1 Secondary polycythemia (principal)
CPT/HCPCS: 99195

== ENCOUNTER 2023-03-19 02:34 | Outpatient (CLI) | payer MEDICARE, SELFPAY ==
[2023-03-19 07:32] LABS: HCT 49.1 % (40.0-50.0); HGB 14.7 g/dL (13.5-17.5); MCH 20.9 pg (27.0-33.0); MCHC 29.9 % (32.0-36.0); MCV 70 fL (80-95); MPV 9.4 fL (8.0-11.0); Platelet Count 293 10^3/uL (130-400); RBC 7.03 10^6/uL (4.36-5.78); RDW 20.5 % (11.8-14.1); RDW-SD 47.6 fL; WBC 8.45 10^3/uL (4.4-10.8)
[2023-03-19 07:48] LABS: Anion Gap 5.6 mmol/L (3-11); BUN 22 mg/dL (7-18); CO2 31.4 mmol/L (21.0-32.0); Calcium 9.2 mg/dL (8.5-10.1); Chloride 103 mmol/L (98-107); Estimated GFR 32.91 (mL/min/1.73m2); Glucose 110 mg/dL (74-106); Potassium 4.7 mmol/L (3.5-5.1); Sodium 140 mmol/L (136-145); TSH (W/Ref FT4) 4.47 uIU/mL (0.36-3.74)
[2023-03-19 08:26] LABS: FREE T4 1.03 ng/dL (0.76-1.46)
[2023-03-20 09:49] LABS: Prealbumin 21 mg/dL (20-40)
== END 2023-03-19 02:35 | disposition home or self-care (01) ==
LOC: LBO 02:34
PROVIDERS: Surgery; PCP Family Medicine; Visit Provider Family Medicine
DX: E03.9 Hypothyroidism, unspecified (principal); N18.9 Chronic kidney disease, unspecified; I71.43 Infrarenal abdominal aortic aneurysm, without rupture; Z01.818 Encounter for other preprocedural examination
CPT/HCPCS: 80048; 85027; 99195; 84134; 84439; 84443

== ENCOUNTER 2023-04-17 10:02 | Outpatient (CLI) | payer MEDICARE, SELFPAY ==
[2023-04-17 13:20] LABS: HCT 39.1 % (40.0-50.0); HGB 11.6 g/dL (13.5-17.5)
== END 2023-04-17 10:03 | disposition home or self-care (01) ==
LOC: LBO 10:04
PROVIDERS: PCP Family Medicine; Visit Provider Family Medicine
DX: D75.1 Secondary polycythemia (principal)
CPT/HCPCS: 36415; 85014; 85018

== ENCOUNTER 2023-04-29 13:20 | Outpatient (CLI) | payer MEDICARE, SELFPAY ==
[2023-04-29 11:45] LABS: HCT 42.4 % (40.0-50.0); HGB 12.8 g/dL (13.5-17.5); MCH 21.7 pg (27.0-33.0); MCHC 30.2 % (32.0-36.0); MCV 72 fL (80-95); MPV 9.1 fL (8.0-11.0); Platelet Count 456 10^3/uL (130-400); RDW 19.6 % (11.8-14.1); RDW-SD 49.1 fL; WBC 9.14 10^3/uL (4.4-10.8)
[2023-04-29 11:54] LABS: INR 1.9 (0.9-1.1); Prothrombin Time 18.9 sec (9.3-11.0)
[2023-04-29 11:58] LABS: BUN 30 mg/dL (7-18); Calcium 9.3 mg/dL (8.5-10.1); Chloride 103 mmol/L (98-107); Estimated GFR 32.91 (mL/min/1.73m2); Glucose 107 mg/dL (74-106); Sodium 139 mmol/L (136-145)
== END 2023-04-29 13:21 | disposition home or self-care (01) ==
LOC: LBO 13:20
PROVIDERS: PCP Family Medicine; Visit Provider Family Medicine
DX: Z79.01 Long term (current) use of anticoagulants (principal); N18.9 Chronic kidney disease, unspecified; E03.9 Hypothyroidism, unspecified; Z86.79 Personal history of other diseases of the circulatory system; Z98.890 Other specified postprocedural states
CPT/HCPCS: 36415; 80048; 85027; 85610

== ENCOUNTER 2023-05-20 02:33 | Outpatient (CLI) | payer MEDICARE, SELFPAY ==
[2023-05-20 07:39] LABS: HCT 42.7 % (40.0-50.0); HGB 12.8 g/dL (13.5-17.5)
== END 2023-05-20 02:34 | disposition home or self-care (01) ==
LOC: LBO 02:33
PROVIDERS: PCP Family Medicine; Visit Provider Family Medicine
DX: D75.1 Secondary polycythemia (principal)
CPT/HCPCS: 36415; 85014; 85018

== ENCOUNTER 2023-06-10 01:33 | Outpatient (RCR) | payer MEDICARE, SELFPAY ==
[2023-04-15 00:14] VITALS: BP 119/81; PULSE 66; RESP 18; TEMP 36.5
== END 2023-06-14 23:59 | disposition home or self-care (01) ==
LOC: INF 01:33
PROVIDERS: PCP Family Medicine; Visit Provider Family Medicine

== ENCOUNTER 2023-06-10 02:16 | Outpatient (CLI) | payer MEDICARE, SELFPAY ==
[2023-06-10 07:45] LABS: HCT 44.6 % (40.0-50.0); HGB 13.2 g/dL (13.5-17.5)
== END 2023-06-10 02:17 | disposition home or self-care (01) ==
LOC: LBO 02:16
PROVIDERS: PCP Family Medicine; Visit Provider Family Medicine
DX: D75.1 Secondary polycythemia (principal)
CPT/HCPCS: 36415; 85014; 85018

== ENCOUNTER 2023-07-29 02:00 | Outpatient (CLI) | payer MEDICARE, SELFPAY ==
[2023-07-29 07:44] LABS: HCT 45.5 % (40.0-50.0)
== END 2023-07-29 02:01 | disposition home or self-care (01) ==
LOC: LBO 02:00
PROVIDERS: PCP Family Medicine; Visit Provider Family Medicine
DX: D75.1 Secondary polycythemia (principal)
CPT/HCPCS: 36415; 85014; 85018

== ENCOUNTER 2023-08-26 04:46 | Outpatient (CLI) | payer MEDICARE, SELFPAY ==
[2023-08-26 08:02] LABS: HGB 14.3 g/dL (13.5-17.5)
== END 2023-08-26 04:47 | disposition home or self-care (01) ==
LOC: LBO 04:46
PROVIDERS: PCP Family Medicine; Visit Provider Family Medicine
DX: D75.1 Secondary polycythemia (principal)
CPT/HCPCS: 36415; 85014; 85018

== ENCOUNTER 2023-09-23 03:43 | Outpatient (CLI) | payer MEDICARE, SELFPAY ==
[2023-09-23 07:46] LABS: HCT 39.9 % (40.0-50.0); HGB 12.6 g/dL (13.5-17.5)
== END 2023-09-23 03:44 | disposition home or self-care (01) ==
LOC: LBO 03:43
PROVIDERS: PCP Family Medicine; Visit Provider Family Medicine
DX: D75.1 Secondary polycythemia (principal)
CPT/HCPCS: 36415; 85014; 85018

== ENCOUNTER 2023-11-11 03:12 | Outpatient (CLI) | payer MEDICARE, SELFPAY ==
[2023-11-11 07:49] LABS: HCT 43.9 % (40.0-50.0); HGB 13.9 g/dL (13.5-17.5)
== END 2023-11-11 03:13 | disposition home or self-care (01) ==
LOC: LBO 03:12
PROVIDERS: PCP Family Medicine; Visit Provider Family Medicine
DX: D75.1 Secondary polycythemia (principal)
CPT/HCPCS: 36415; 85014; 85018

== ENCOUNTER 2023-12-30 04:00 | Outpatient (CLI) | payer MEDICARE, SELFPAY ==
[2023-12-30 07:42] LABS: HCT 45.4 % (40.0-50.0); HGB 14.6 g/dL (13.5-17.5)
== END 2023-12-30 04:01 | disposition home or self-care (01) ==
LOC: LBO 04:00
PROVIDERS: PCP Family Medicine; Visit Provider Family Medicine
DX: D75.1 Secondary polycythemia (principal)
CPT/HCPCS: 36415; 85014; 85018

== ENCOUNTER 2024-01-27 05:04 | Outpatient (RCR) | payer MEDICARE, SELFPAY ==
[2024-01-14 00:18] VITALS: BP 119/81; PULSE 66; RESP 18; TEMP 36.5
== END 2024-02-13 23:59 | disposition home or self-care (01) ==
LOC: INF 05:04
PROVIDERS: PCP Family Medicine; Visit Provider Family Medicine
DX: D75.1 Secondary polycythemia (principal); E79.0 Hyperuricemia without signs of inflammatory arthritis and tophaceous disease
CPT/HCPCS: 99195

== ENCOUNTER 2024-01-27 05:13 | Outpatient (CLI) | payer MEDICARE, SELFPAY ==
[2024-01-27 07:24] LABS: HCT 46.3 % (40.0-50.0); HGB 14.7 g/dL (13.5-17.5)
== END 2024-01-27 05:14 | disposition home or self-care (01) ==
LOC: LBO 05:14
PROVIDERS: PCP Family Medicine; Visit Provider Family Medicine
DX: D75.1 Secondary polycythemia (principal)
CPT/HCPCS: 36415; 99195; 85014; 85018

== ENCOUNTER 2024-02-24 05:02 | Outpatient (CLI) | payer MEDICARE, SELFPAY ==
[2024-02-24 07:23] LABS: HCT 43.9 % (40.0-50.0); HGB 14.2 g/dL (13.5-17.5)
== END 2024-02-24 05:03 | disposition home or self-care (01) ==
LOC: LBO 05:02
PROVIDERS: PCP Family Medicine; Visit Provider Family Medicine
DX: D75.1 Secondary polycythemia (principal)
CPT/HCPCS: 36415; 85014; 85018

== ENCOUNTER 2024-03-23 04:39 | Outpatient (CLI) | payer MEDICARE, SELFPAY ==
[2024-03-23 07:15] LABS: HCT 45.4 % (40.0-50.0); HGB 14.4 g/dL (13.5-17.5)
== END 2024-03-23 04:40 | disposition home or self-care (01) ==
LOC: LBO 04:39
PROVIDERS: PCP Family Medicine; Visit Provider Family Medicine
DX: D75.1 Secondary polycythemia (principal)
CPT/HCPCS: 36415; 85014; 85018

== ENCOUNTER 2024-04-29 04:02 | Outpatient (RCR) | payer MEDICARE, SELFPAY ==
[2024-04-15 00:31] VITALS: BP 119/81; PULSE 66; RESP 18; TEMP 36.5
== END 2024-05-15 23:59 | disposition home or self-care (01) ==
LOC: INF 04:02
PROVIDERS: PCP Family Medicine; Visit Provider Family Medicine
DX: D75.1 Secondary polycythemia (principal)
CPT/HCPCS: 99195

== ENCOUNTER 2024-04-29 04:41 | Outpatient (CLI) | payer MEDICARE, SELFPAY ==
[2024-04-29 08:00] LABS: HCT 47.9 % (40.0-50.0); HGB 15.1 g/dL (13.5-17.5)
== END 2024-04-29 04:42 | disposition home or self-care (01) ==
LOC: LBO 04:41
PROVIDERS: PCP Family Medicine; Visit Provider Family Medicine
DX: D75.1 Secondary polycythemia (principal)
CPT/HCPCS: 36415; 99195; 85014; 85018

== ENCOUNTER 2024-05-25 01:43 | Outpatient (RCR) | payer MEDICARE, SELFPAY ==
[2024-05-16 00:30] VITALS: BP 119/81; PULSE 66; RESP 18; TEMP 36.5
== END 2024-06-14 23:59 | disposition home or self-care (01) ==
LOC: INF 01:43
PROVIDERS: PCP Family Medicine; Visit Provider Family Medicine
DX: D75.1 Secondary polycythemia (principal)
CPT/HCPCS: 99195

== ENCOUNTER 2024-05-25 02:22 | Outpatient (CLI) | payer MEDICARE, SELFPAY ==
[2024-05-25 07:20] LABS: HCT 46.7 % (40.0-50.0); HGB 14.7 g/dL (13.5-17.5)
[2024-05-25 07:42] LABS: Prothrombin Time 35.8 sec (9.1-11.1)
== END 2024-05-25 02:23 | disposition home or self-care (01) ==
LOC: LBO 02:23
PROVIDERS: PCP Family Medicine; Visit Provider Family Medicine
DX: D75.1 Secondary polycythemia (principal); Z79.01 Long term (current) use of anticoagulants
CPT/HCPCS: 36415; 99195; 85014; 85018; 85610

== ENCOUNTER 2024-06-22 03:09 | Outpatient (CLI) | payer MEDICARE, SELFPAY ==
[2024-06-22 07:18] LABS: HCT 44.2 % (40.0-50.0); HGB 13.8 g/dL (13.5-17.5)
[2024-06-22 07:37] LABS: Uric Acid 10.1 mg/dL (3.5-7.2)
== END 2024-06-22 03:10 | disposition home or self-care (01) ==
LOC: LBO 03:09
PROVIDERS: PCP Family Medicine; Visit Provider Family Medicine
DX: N18.9 Chronic kidney disease, unspecified (principal); D75.1 Secondary polycythemia
CPT/HCPCS: 36415; 84550; 85014; 85018

== ENCOUNTER 2024-07-20 02:27 | Outpatient (CLI) | payer MEDICARE, SELFPAY ==
[2024-07-20 07:15] LABS: HCT 45.2 % (40.0-50.0); HGB 14.2 g/dL (13.5-17.5)
== END 2024-07-20 02:28 | disposition home or self-care (01) ==
LOC: LBO 02:28
PROVIDERS: PCP Family Medicine; Visit Provider Family Medicine
DX: Z79.01 Long term (current) use of anticoagulants (principal); M10.9 Gout, unspecified
CPT/HCPCS: 36415; 84550; 85014; 85018

== ENCOUNTER 2024-08-17 02:16 | Outpatient (RCR) | payer MEDICARE, SELFPAY ==
[2024-08-15 00:23] VITALS: BP 119/81; PULSE 66; RESP 18; TEMP 36.5
[2024-08-17 08:17] VITALS: BP 138/74; PULSE 68; O2SAT 98
[2024-08-17] MEDS: Normal Saline Flush 10 ML SYR IVP (08:23)
== END 2024-09-14 23:59 | disposition home or self-care (01) ==
LOC: INF 02:16
PROVIDERS: PCP Family Medicine; Visit Provider Family Medicine
DX: D75.1 Secondary polycythemia (principal)
CPT/HCPCS: 99195

== ENCOUNTER 2024-08-17 02:34 | Outpatient (CLI) | payer MEDICARE, SELFPAY ==
[2024-08-17 07:40] LABS: HGB 14.5 g/dL (13.5-17.5)
[2024-08-17 07:51] LABS: INR 3.7 (0.9-1.1); Prothrombin Time 32.8 sec (9.1-11.1)
== END 2024-08-17 02:35 | disposition home or self-care (01) ==
LOC: LBO 02:34
PROVIDERS: PCP Family Medicine; Visit Provider Family Medicine
DX: Z79.01 Long term (current) use of anticoagulants (principal); D75.1 Secondary polycythemia; I48.20 Chronic atrial fibrillation, unspecified
CPT/HCPCS: 36415; 99195; 85014; 85018; 85610

== ENCOUNTER 2024-09-21 02:02 | Outpatient (RCR) | payer MEDICARE, SELFPAY ==
[2024-09-15 00:11] VITALS: BP 119/81; PULSE 66; RESP 18; TEMP 36.5
== END 2024-10-15 23:59 | disposition home or self-care (01) ==
LOC: INF 02:02
PROVIDERS: PCP Family Medicine; Visit Provider Family Medicine
DX: D75.1 Secondary polycythemia (principal); I48.20 Chronic atrial fibrillation, unspecified
CPT/HCPCS: 99195

== ENCOUNTER 2024-09-21 02:58 | Outpatient (CLI) | payer MEDICARE, SELFPAY ==
[2024-09-21 07:55] LABS: HCT 45.5 % (40.0-50.0); HGB 14.3 g/dL (13.5-17.5)
[2024-09-21 08:06] LABS: Prothrombin Time 39.9 sec (9.1-11.1)
[2024-09-21 08:08] LABS: Uric Acid 9.9 mg/dL (3.5-7.2)
[2024-09-21 08:26] LABS: INR 4.5 (0.9-1.1)
== END 2024-09-21 02:59 | disposition home or self-care (01) ==
LOC: LBO 02:58
PROVIDERS: PCP Family Medicine; Visit Provider Family Medicine
DX: E79.0 Hyperuricemia without signs of inflammatory arthritis and tophaceous disease (principal)
CPT/HCPCS: 36415; 99195; 84550; 85014; 85018; 85610

== ENCOUNTER 2024-10-26 03:22 | Outpatient (CLI) | payer MEDICARE, SELFPAY ==
[2024-10-26 07:54] LABS: HCT 45.1 % (40.0-50.0); HGB 13.9 g/dL (13.5-17.5)
[2024-10-26 08:05] LABS: INR 3.4 (0.9-1.1); Prothrombin Time 31.4 sec (9.1-11.1)
== END 2024-10-26 03:23 | disposition home or self-care (01) ==
LOC: LBO 03:22
PROVIDERS: PCP Family Medicine; Visit Provider Family Medicine
DX: D75.1 Secondary polycythemia (principal); Z79.01 Long term (current) use of anticoagulants; I48.20 Chronic atrial fibrillation, unspecified
CPT/HCPCS: 36415; 85014; 85018; 85610

== ENCOUNTER 2024-11-02 04:43 | Outpatient (CLI) | payer MEDICARE, SELFPAY ==
[2024-11-02 11:01] LABS: INR 3.6 (0.9-1.1); Prothrombin Time 32.9 sec (9.1-11.1)
== END 2024-11-02 04:44 | disposition home or self-care (01) ==
LOC: LBO 04:43
PROVIDERS: PCP Family Medicine; Visit Provider Family Medicine
DX: Z79.01 Long term (current) use of anticoagulants (principal); E79.0 Hyperuricemia without signs of inflammatory arthritis and tophaceous disease
CPT/HCPCS: 36415; 85610

== ENCOUNTER 2024-11-16 02:54 | Outpatient (RCR) | payer MEDICARE, SELFPAY | END 2024-12-13 23:59 | disposition home or self-care (01) | LOC: INF 02:54 | PROVIDERS: PCP Family Medicine; Visit Provider Family Medicine | DX: D75.1 Secondary polycythemia (principal) | CPT/HCPCS: 99195 ==

== ENCOUNTER 2024-11-16 02:57 | Outpatient (CLI) | payer MEDICARE, SELFPAY ==
[2024-11-16 07:38] LABS: HCT 46.7 % (40.0-50.0); HGB 14.3 g/dL (13.5-17.5)
[2024-11-16 07:58] LABS: Uric Acid 9.7 mg/dL (3.5-7.2)
[2024-11-16 07:59] LABS: INR 2.2 (0.9-1.1); Prothrombin Time 21.2 sec (9.1-11.1)
== END 2024-11-16 02:58 | disposition home or self-care (01) ==
PROVIDERS: PCP Family Medicine; Visit Provider Family Medicine
DX: E79.0 Hyperuricemia without signs of inflammatory arthritis and tophaceous disease (principal); D75.1 Secondary polycythemia; Z79.01 Long term (current) use of anticoagulants
CPT/HCPCS: 36415; 99195; 84550; 85014; 85018; 85610

== ENCOUNTER 2024-12-14 02:02 | Outpatient (CLI) | payer MEDICARE, SELFPAY ==
[2024-12-14 07:22] LABS: HCT 40.4 % (40.0-50.0); HGB 12.6 g/dL (13.5-17.5)
[2024-12-14 07:33] LABS: INR 2.9 (0.9-1.1); Prothrombin Time 27.2 sec (9.1-11.1)
== END 2024-12-14 02:03 | disposition home or self-care (01) ==
LOC: LBO 02:02
PROVIDERS: PCP Family Medicine; Visit Provider Family Medicine
DX: D75.1 Secondary polycythemia (principal); Z79.01 Long term (current) use of anticoagulants; I48.21 Permanent atrial fibrillation
CPT/HCPCS: 36415; 85014; 85018; 85610

== ENCOUNTER 2025-01-11 00:26 | Outpatient (CLI) | payer MEDICARE, SELFPAY ==
[2025-01-11 07:19] LABS: HCT 43.1 % (40.0-50.0)
[2025-01-11 07:29] LABS: INR 2.4 (0.9-1.1); Prothrombin Time 22.8 sec (9.1-11.1)
== END 2025-01-11 00:27 | disposition home or self-care (01) ==
LOC: LBO 00:26
PROVIDERS: PCP Family Medicine; Visit Provider Family Medicine
DX: D75.1 Secondary polycythemia (principal); Z79.01 Long term (current) use of anticoagulants; I48.20 Chronic atrial fibrillation, unspecified
CPT/HCPCS: 36415; 85014; 85018; 85610

== ENCOUNTER 2025-02-08 02:36 | Outpatient (CLI) | payer MEDICARE, SELFPAY ==
[2025-02-08 07:35] LABS: HCT 43.8 % (40.0-50.0); HGB 13.4 g/dL (13.5-17.5)
[2025-02-08 07:50] LABS: Uric Acid 10.3 mg/dL (3.5-7.2)
[2025-02-08 08:17] LABS: Prothrombin Time 27.5 sec (9.1-11.1)
== END 2025-02-08 02:37 | disposition home or self-care (01) ==
LOC: LBO 02:36
PROVIDERS: PCP Family Medicine; Visit Provider Family Medicine
DX: E03.9 Hypothyroidism, unspecified (principal); D75.1 Secondary polycythemia; Z79.01 Long term (current) use of anticoagulants; I48.20 Chronic atrial fibrillation, unspecified; M10.9 Gout, unspecified
CPT/HCPCS: 36415; 84443; 84550; 85014; 85018; 85610

== ENCOUNTER 2025-03-08 02:56 | Outpatient (CLI) | payer MEDICARE, SELFPAY ==
[2025-03-08 07:21] LABS: HCT 43.6 % (40.0-50.0); HGB 13.6 g/dL (13.5-17.5)
[2025-03-08 07:31] LABS: INR 2.7 (0.9-1.1); Prothrombin Time 25.5 sec (9.1-11.1)
[2025-03-08 07:35] LABS: Uric Acid 9.8 mg/dL (3.5-7.2)
== END 2025-03-08 02:57 | disposition home or self-care (01) ==
LOC: LBO 02:56
PROVIDERS: PCP Family Medicine; Visit Provider Family Medicine
DX: D75.1 Secondary polycythemia (principal); Z79.01 Long term (current) use of anticoagulants
CPT/HCPCS: 36415; 84550; 85014; 85018; 85610

== ENCOUNTER 2025-04-05 02:49 | Outpatient (RCR) | payer MEDICARE, SELFPAY | END 2025-04-14 23:59 | disposition home or self-care (01) | LOC: INF 02:49 | PROVIDERS: PCP Family Medicine; Visit Provider Family Medicine | DX: D75.1 Secondary polycythemia (principal); I48.20 Chronic atrial fibrillation, unspecified; Z79.01 Long term (current) use of anticoagulants | CPT/HCPCS: 99195 ==

== ENCOUNTER 2025-04-05 03:00 | Outpatient (CLI) | payer MEDICARE, SELFPAY ==
[2025-04-05 07:31] LABS: HCT 47.0 % (40.0-50.0); HGB 14.7 g/dL (13.5-17.5)
[2025-04-05 07:40] LABS: INR 2.3 (0.9-1.1); Prothrombin Time 22.1 sec (9.1-11.1)
[2025-04-05 07:42] LABS: Uric Acid 8.9 mg/dL (3.5-7.2)
== END 2025-04-05 03:01 | disposition home or self-care (01) ==
LOC: LBO 03:00
PROVIDERS: PCP Family Medicine; Visit Provider Family Medicine
DX: D75.1 Secondary polycythemia (principal); Z79.01 Long term (current) use of anticoagulants
CPT/HCPCS: 36415; 99195; 84550; 85014; 85018; 85610

== ENCOUNTER 2025-05-03 02:06 | Outpatient (CLI) | payer MEDICARE, SELFPAY ==
[2025-05-03 07:23] LABS: HCT 45.1 % (40.0-50.0); HGB 14.0 g/dL (13.5-17.5)
[2025-05-03 07:37] LABS: INR 3.0 (0.9-1.1); Prothrombin Time 27.9 sec (9.1-11.1)
[2025-05-03 07:39] LABS: Uric Acid 9.0 mg/dL (3.5-7.2)
== END 2025-05-03 02:07 | disposition home or self-care (01) ==
LOC: LBO 02:06
PROVIDERS: PCP Family Medicine; Visit Provider Family Medicine
DX: D75.1 Secondary polycythemia (principal); Z79.01 Long term (current) use of anticoagulants
CPT/HCPCS: 36415; 84550; 85014; 85018; 85610

== ENCOUNTER 2025-05-31 03:44 | Outpatient (CLI) | payer MEDICARE, SELFPAY ==
[2025-05-31 07:09] LABS: HCT 45.0 % (40.0-50.0); HGB 13.9 g/dL (13.5-17.5)
[2025-05-31 07:25] LABS: INR 2.6 (0.9-1.1); Prothrombin Time 24.7 sec (9.1-11.1)
[2025-05-31 07:28] LABS: Uric Acid 9.0 mg/dL (3.5-7.2)
== END 2025-05-31 03:45 | disposition home or self-care (01) ==
LOC: LBO 03:44
PROVIDERS: PCP Family Medicine; Visit Provider Family Medicine
DX: D75.1 Secondary polycythemia (principal); Z79.01 Long term (current) use of anticoagulants
CPT/HCPCS: 36415; 84550; 85014; 85018; 85610

== ENCOUNTER 2025-06-28 03:16 | Outpatient (CLI) | payer MEDICARE, SELFPAY ==
[2025-06-28 07:20] LABS: HCT 45.2 % (40.0-50.0); HGB 14.2 g/dL (13.5-17.5)
[2025-06-28 07:29] LABS: INR 2.6 (0.9-1.1); Prothrombin Time 24.8 sec (9.1-11.1)
[2025-06-28 07:33] LABS: Uric Acid 9.1 mg/dL (3.5-7.2)
== END 2025-06-28 03:17 | disposition home or self-care (01) ==
LOC: LBO 03:16
PROVIDERS: PCP Family Medicine; Visit Provider Family Medicine
DX: D75.1 Secondary polycythemia (principal); Z79.01 Long term (current) use of anticoagulants
CPT/HCPCS: 36415; 84550; 85014; 85018; 85610

== ENCOUNTER 2025-07-26 00:32 | Outpatient (CLI) | payer MEDICARE, SELFPAY ==
[2025-07-26 07:32] LABS: HCT 45.1 % (40.0-50.0); HGB 14.1 g/dL (13.5-17.5)
[2025-07-26 07:46] LABS: INR 3.4 (0.9-1.1); Prothrombin Time 31.7 sec (9.1-11.1)
[2025-07-26 07:48] LABS: Uric Acid 8.8 mg/dL (3.5-7.2)
== END 2025-07-26 00:33 | disposition home or self-care (01) ==
LOC: LBO 00:33
PROVIDERS: PCP Family Medicine; Visit Provider Family Medicine
DX: Z79.01 Long term (current) use of anticoagulants (principal); D75.1 Secondary polycythemia; I48.20 Chronic atrial fibrillation, unspecified; M10.9 Gout, unspecified
CPT/HCPCS: 36415; 84550; 85014; 85018; 85610

== ENCOUNTER 2025-08-02 11:01 | Outpatient (CLI) | payer MEDICARE, SELFPAY ==
[2025-08-02 11:12] LABS: INR 3.8 (0.9-1.1); Prothrombin Time 35.0 sec (9.1-11.1)
== END 2025-08-02 11:02 | disposition home or self-care (01) ==
LOC: LBO 11:01
PROVIDERS: PCP Family Medicine; Visit Provider Family Medicine
DX: Z79.01 Long term (current) use of anticoagulants (principal)
CPT/HCPCS: 36415; 85610

== ENCOUNTER 2025-08-09 10:16 | Outpatient (CLI) | payer MEDICARE, SELFPAY ==
[2025-08-09 10:44] LABS: INR 2.7 (0.9-1.1); Prothrombin Time 25.1 sec (9.1-11.1)
== END 2025-08-09 10:17 | disposition home or self-care (01) ==
LOC: LBO 10:17
PROVIDERS: PCP Family Medicine; Visit Provider Family Medicine
DX: Z79.01 Long term (current) use of anticoagulants (principal)
CPT/HCPCS: 36415; 85610

== ENCOUNTER 2025-08-15 10:36 | Outpatient (CLI) | payer MEDICARE, SELFPAY ==
[2025-08-15 10:52] LABS: INR 3.1 (0.9-1.1); Prothrombin Time 29.1 sec (9.1-11.1)
== END 2025-08-15 10:37 | disposition home or self-care (01) ==
LOC: LBO 10:38
PROVIDERS: PCP Family Medicine; Visit Provider Family Medicine
DX: Z79.01 Long term (current) use of anticoagulants (principal)
CPT/HCPCS: 36415; 85610

== ENCOUNTER 2025-08-23 00:57 | Outpatient (RCR) | payer MEDICARE, SELFPAY | END 2025-09-14 23:59 | disposition home or self-care (01) | LOC: INF 00:57 | PROVIDERS: PCP Family Medicine; Visit Provider Family Medicine | DX: D75.1 Secondary polycythemia (principal) | CPT/HCPCS: 99195 ==

== ENCOUNTER 2025-08-23 01:21 | Outpatient (CLI) | payer MEDICARE, SELFPAY ==
[2025-08-23 09:58] LABS: HCT 48.2 % (40.0-50.0); HGB 15.1 g/dL (13.5-17.5)
[2025-08-23 10:08] LABS: INR 2.0 (0.9-1.1); Prothrombin Time 19.0 sec (9.1-11.1)
[2025-08-23 10:19] LABS: Uric Acid 9.2 mg/dL (3.7-9.2)
== END 2025-08-23 01:22 | disposition home or self-care (01) ==
LOC: LBO 01:21
PROVIDERS: PCP Family Medicine; Visit Provider Family Medicine
DX: Z95.2 Presence of prosthetic heart valve (principal); D75.1 Secondary polycythemia; I48.20 Chronic atrial fibrillation, unspecified; Z79.01 Long term (current) use of anticoagulants; M10.9 Gout, unspecified
CPT/HCPCS: 36415; 84550; 85014; 85018; 85610